=== PATIENT | male | born 1935 | race Caucasian/White ===

== ENCOUNTER 2023-01-02 10:18 | Emergency (ER) | payer MEDICARE, BC ==
[~2023-01-02] VITALS: Ht 175.3 cm; Wt 77.1 kg
[2023-01-02 10:20] VITALS: O2SAT 98
[2023-01-02] MEDS ORDERED: ALLO100T56 PO (10:36)
[2023-01-02] MEDS ORDERED: LOSA25TA27 PO (10:36)
[2023-01-02] MEDS ORDERED: AMLO10TA59 PO (10:36)
[2023-01-02] MEDS ORDERED: ROSU10TA2 PO (10:36)
[2023-01-02] MEDS ORDERED: ASPI81TA31 PO (10:36)
== END 2023-01-02 11:42 | disposition home or self-care (01) ==
LOC: ER 10:21
DX: S51.811A Laceration without foreign body of right forearm, initial encounter (principal); Z79.82 Long term (current) use of aspirin; Z79.899 Other long term (current) drug therapy; V19.9XXA Pedal cyclist (driver) (passenger) injured in unspecified traffic accident, initial encounter; Y93.89 Activity, other specified; Y92.89 Other specified places as the place of occurrence of the external cause; Y99.8 Other external cause status
CPT/HCPCS: A4663